=== PATIENT | female | born 1935 | race Caucasian/White ===

== ENCOUNTER 2020-02-28 15:08 | Emergency (ER) | payer OTHER ==
--- OUTSIDE RECORDS SUMMARY | 2020-02-28 15:12 | XMS REPORT | Continuity of Care Document ---
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, Neuro systemic arterial (disorder) Memory Active Problem 03/16/2019 [facility] impairment Neuro (finding) Medications Medication Details Route Status Patient Ordering Order Source Instructions Provider Date carvedilol 3.125 mg, Active 02/01/20 [facility] PO, BID, 0 19 Neuro Refill(s) Furosemide 20 mg, PO, Active 02/01/20 [facility] Daily, 0 19 Neuro Refill(s) olmesartan 40 mg, PO, Active 02/01/20 [facility] Daily, # 30 19 Neuro tab, 0 Refill(s) latanoprost 1 drp, Each Active 02/01/20 [facility] 0.05 MG/ML Affected 19 Neuro Ophthalmic Eye, Solution Bedtime, # [Xalatan] 1 btl, 1 Refill(s) Aspirin 325 mg, PO, Active 02/01/20 [facility] BID, 0 19 Neuro Refill(s) Allergies, Adverse Reactions, Alerts Substance Category Reaction Severity Reaction Status Date Comments S ource type Reported sulfa drugs Assertion Drug Active Mi eldon allergy Neuro hydrochloro Assertion Drug Active Mi eldon thiazide-tr allergy Neur o iamterene Immunizations No Data Provided for This Section Results No Data Provided for This Section Pathology Reports No Data Provided for This Section Diagnostic Reports No Data Provided for This Section Consultation Notes No Data Provided for This Section Discharge Summaries No Data Provided for This Section History and Physicals No Data Provided for This Section Vital Signs Vital Sign Value Date Comments Source Systolic (mm Hg) 169 03/13/2019 [facility]to ro Diastolic (mm Hg) 76 03/13/2019 [facility] u[facility] Heart Rate 74 03/13/2019 [facility] Respitory Rate 16 03/13/2019 [facility] Height 165.1 cm 03/13/2019 [facility] Weight 80 03/13/2019 [facility] BMI Calculated 29.35 03/13/2019 [facility] Systolic (mm Hg) 168 01/31/2019 [facility] Eriberto ro Diastolic (mm Hg) 82 01/31/2019 [facility] Ne uro Heart Rate 71 01/31/2019 [facility] Neuro Respitory Rate 16 01/31/2019 [facility] Neuro Height 165.1 cm 01/31/2019 [facility] Weight 79.545 01/31/2019 [facility] BMI Calculated 29.18 01/31/2019 [facility] Neuro Encounters Location Location Encounter Encounter Reason Attending ADM [place] Source Details Type Number For Provider Date Date Visit [facility] Outpatient [id number] Joe 01/31 02/01 [facility] Neurology [facility] Neuro [facility] Outpatient [id number] Joe 03/13 [facility] Eddie MNA Outpatient [id number] Joe 03/13 03/14 [facility] Neurology [facility] Neuro [facility] Procedures No Data Provided for This Section Assessment and Plan No Data Provided for This Section Plan of Care No Data Provided for This Section Social History Social History Date Source Social History TypeResponse 01/31/2019 [facility] Neur o Employment/School 1 Smoking Status Former smoker; Type: Cigarettes; Exposur e to Tobacco Smoke Unable to obtain; Cigarette Smoking Last 365 Days Unable to obtain; Reg Smoking Cessation Counseling No; Other Tobacco Frequency Stopped 30yrs ago; entered on: 03/13/19 1May release medical information to Daughter-Kiah Johnson Family History No Data Provided for This Section Advance Directives No Data Provided for This Section Functional Status No Data Provided for This Section
[2020-02-28 16:08] LABS: Absolute Lymphocytes (CBC) 1.4 K/uL (0.7-4.9); Basophils % 0.9 % (0-1.3); Hematocrit 37.8 % (36.0-45.0); Lymphocytes % 26.4 % (15.3-44.8); MPV 7.5 fL (7.6-11.3)
--- NOTE | 2020-02-28 16:20 | RAD REPORT ---
EXAM DESCRIPTION: CT - Abdomen Pelvis W Contrast - 02/28/2020 4:06 pm CLINICAL HISTORY: bloody bowel movement COMPARISON: No comparisons TECHNIQUE: Biphasic, helical CT imaging of the abdomen and pelvis was performed following 100 ml non -ionic IV contrast. No oral contrast administered. All CT scans are performed using dose optimization technique as appropriate and may include automated exposure control or mA/KV adjustment according to patient size. FINDINGS: A 7 x 3 mm pulmonary nodule is seen in the lower right lung field. No pneumothorax or pleu ral effusion. The liver, spleen, and pancreas show no suspicious findings. Gallbladder is absent. Biliary tree is p rominent but not outside of normal range for a post cholecystectomy patient. Duct stones can be occul t. Symmetric renal function is seen with no hydronephrosis or suspicious renal mass. No pyelonephritis o r acute parenchymal process. Benign renal cysts are present. No adrenal abnormalities. No urinary dia dder abnormality seen. Uterus is absent. Ovaries are absent or atrophic. Pelvic floor laxity is prese nt. No dilated bowel loops or bowel wall thickening. No gastric dilatation or wall thickening. No dilated large or small bowel loops. Patient has scattered velasquez diverticulosis. No diverticulitis, mass, wall thickening or other active colon process identifiable. No free air, free fluid or inflammatory strand ing. No mass or bulky lymphadenopathy. Fat only left inguinal hernia is present. No suspicious bony findings. IMPRESSION: Contrast enhanced CT abdomen and pelvis showing no acute or emergent finding. Nonacute findings detailed in the body of the report.
[2020-02-28 16:22] LABS: Protime INR 1.03
[2020-02-28 16:30] LABS: ALT/SGPT 29 U/L (12-78); AST/SGOT 23 U/L (15-37); Albumin 3.8 g/dL (3.4-5.0); Alkaline Phosphatase 83 U/L (45-117); BUN Blood Urea Nitrogen 36 mg/dL (7-18); Bicarbonate 30 mmol/L (21-32); Bilirubin Direct 0.1 mg/dL (0-0.2); Bilirubin Total 0.5 mg/dL (0.2-1.0); Glucose Level 102 mg/dL (74-106); Magnesium 2.4 mg/dL (1.8-2.4); NT PRO-BNP 77 pg/mL (<450); Potassium 3.7 mmol/L (3.5-5.1); Protein, Total 7.4 g/dL (6.4-8.2); Sodium Level 143 mmol/L (136-145); Troponin (Emerg Dept Use Only) < 0.02 ng/mL (0.0-0.045)
--- NOTE | 2020-02-28 16:44 | RAD REPORT ---
EXAM DESCRIPTION: RAD - Chest Single View - 02/28/2020 4:27 pm CLINICAL HISTORY: bloody bowel movement, abdominal pain COMPARISON: Two view chest October 2007 TECHNIQUE: AP portable chest image was obtained 02/28/2020 4:27 pm . FINDINGS: Low lung volumes noted. No peripheral mass or consolidation. Interstitial pattern is not s ignificantly different from comparison. Heart and vasculature are normal. No measurable pleural effus ion and no pneumothorax. No acute bony abnormality seen. No acute aortic findings suspected. IMPRESSION: No acute cardiopulmonary process.
--- NOTE | 2020-02-28 17:57 | ER ---
Nurse's Notes [facility] Name: Kiah Gardiner Age: 85 yrs Sex: Female : 1935 Arrival Date: 02/28/2020 Time: 15:10 Bed 20 Private MD: Diagnosis: Gastrointestinal hemorrhage, unspecified Presentation: 02/27 15:18 Chief complaint: Patient states: Bloody stool today at 1100 with blood clot. States she ll1 hasn't had anymore since. No pain or fever. Coronavirus screen: Client denies travel out of the [place] in the last 14 days. At this time, the client does not indicate any symptoms associated with coronavirus-19. Ebola Screen: Patient denies travel to an Ebola-affected area in the 21 days before illness onset. Initial Sepsis Screen: Does the patient meet any 2 criteria? No. Patient's initial sepsis screen is negative. Does the patient have a suspected source of infection? Yes: Other: bloody stool. Risk Assessment: Do you want to hurt yourself or someone else? Patient reports no desire to harm self or others. Onset of symptoms was February 28, 2020. 15:18 Method Of Arrival: Ambulatory ll1 15:18 Acuity: PEDRO 3 ll1 Historical: - Allergies: 15:17 Sulfa (Sulfonamide Antibiotics); ll1 15:17 hydrochlorothiazide; ll1 - PMHx: 15:18 Cataracts; ll1 - PSHx: 15:18 Cholecystectomy; Hysterectomy; knee replacment; Bladder suspension; ll1 - Immunization history:: Flu vaccine is up to date. - Social history:: Smoking status: Patient denies any tobacco usage or history of. Screenin:20 Abuse screen: Denies threats or abuse. Nutritional screening: No deficits noted. tw2 Tuberculosis screening: No symptoms or risk factors identified. Fall Risk Secondary diagnosis (15 points) impaired mobility. Assessment: 15:36 General: Appears in no apparent distress. slender, well groomed, Behavior is calm, tw2 cooperative, appropriate for age. Pain: Denies pain. Neuro: Level of Consciousness is awake, alert, obeys commands, Oriented to person, place, time. Cardiovascular: Heart tones S1 S2 Capillary refill < 3 seconds Patient's skin is warm and dry. Respiratory: Airway is patent Respiratory effort is even, unlabored, Respiratory pattern is regular, symmetrical, Breath sounds are clear bilaterally. GI: Abdomen is round non-distended, Bowel sounds present X 4 quads. Reports bloody stool, x1 today. : No signs and/or symptoms were reported regarding the genitourinary system. EENT: No signs and/or symptoms were reported regarding the EENT system. Derm: No signs and/or symptoms reported regarding the dermatologic system. Musculoskeletal: Range of motion: intact in all extremities. 16:11 Reassessment: pt in CT at this time. tw2 16:13 Reassessment: pt back from CT at this time. NAD. tw2 16:13 Reassessment: xray at bedside at this time. tw2 16:33 Reassessment: Patient appears in no apparent distress at this time. No changes from tw2 previously documented assessment. Patient and/or family updated on plan of care and expected duration. Pain level reassessed. Patient is alert, oriented x 3, equal unlabored respirations, skin warm/dry/pink. 17:29 Reassessment: Patient appears in no apparent distress at this time. No changes from tw2 previously documented assessment. Patient and/or family updated on plan of care and expected duration. Pain level reassessed. Patient is alert, oriented x 3, equal unlabored respirations, skin warm/dry/pink. 19:00 Reassessment: Patient appears in no apparent distress at this time. Patient and/or jb4 family updated on plan of care and expected duration. Pain level reassessed. Patient is alert, oriented x 3, equal unlabored respirations, skin warm/dry/pink. 20:00 Reassessment: Patient appears in no apparent distress at this time. Patient and/or jb4 family updated on plan of care and expected duration. Pain level reassessed. Patient is alert, oriented x 3, equal unlabored respirations, skin warm/dry/pink. PT being wheeled out by EMS. Vital Signs: 15:18 BP 157 / 70; Pulse 82; Resp 17; Temp 97.8; Pulse Ox 100% ; Weight 74.84 kg; Height 5 ll1 ft. 8 in. (172.72 cm); Pain 0/10; 16:31 BP 139 / 53 Supine; Pulse 71; Resp 18; Pulse Ox 100% on R/A; tw2 16:31 BP 143 / 67 Sitting; Pulse 71; Resp 18; tw2 16:31 BP 146 / 74 Standing; Pulse 82; Resp 17; Pulse Ox 99% on R/A; tw2 17:29 BP 147 / 58; Pulse 66; Resp 17; Pulse Ox 100% on R/A; tw2 19:00 BP 159 / 71; Pulse 64; Resp 16; Pulse Ox 100% on R/A; jb4 20:00 BP 157 / 68; Pulse 66; Resp 16; Pulse Ox 100% on R/A; jb4 15:18 Body Mass Index 25.09 (74.84 kg, 172.72 cm) ll1 ED Course: 15:10 Patient arrived in ED. ds1 15:18 Arm band placed on Patient placed in an exam room, on a stretcher. ll1 15:20 Triage completed. ll1 15:20 Placed in gown. Bed in low position. Adult w/ patient. youth nutritional monitor on. Pulse ox on. tw2 NIBP on. Warm blanket given. 15:23 Shreyas Holloway PA is PHCP. cp 15:23 Omer Huber MD is Attending Physician. cp 15:24 Aicha Ortiz, DANDY is Primary Nurse. tw2 15:36 Served as a ribbing machine operator during rectal exam. tw2 15:49 Inserted saline lock: 20 gauge in right antecubital area, using aseptic technique. jp3 Blood collected. 15:49 Initial lab(s) drawn, by ms, sent to lab. T\T\S collected, blood band applied to patient. jp3 Patient maintains SpO2 saturation greater than 95% on room air. 16:07 CT Abd/Pelvis - IV Contrast Only In Process Unspecified. EDMS 16:27 XRAY Chest (1 view) In Process Unspecified. EDMS 16:33 transferred initiated with Amadou Perez from the [facility] Transfer [facility]. eb 17:20 EKG done, by ED staff, reviewed by Shreyas KENYON. [facility] 17:[address] Rodriguez (GI) and Dr. Avendano (hospitalist) personal financial planner for [facility] with rafael KENYON for patient transfer consultation. 17:51 administrative approval given by Amadou Perez/ patient has been accepted to [facility] bed 934/ Dr. Daxa Avendano has accepted the patient in transfer/ report to be called through the transfer center at [phone]. 18:21 Awaiting: unsuccessful attempts to call report at this time. tw2 19:12 Primary Nurse role handed off by Aicha Ortiz RN eb 20:00 Patient transferred, IV remains in place. jb4 20:03 Lamont Denton, RN is Primary Nurse. jb4 Administered Medications: 17:58 Drug: NS 0.9% 500 ml Route: IV; Rate: bolus; Site: right antecubital; tw2 19:07 Follow up: Response: No adverse reaction; Rate change 125 ml/hr; IV Status: Completed tw2 infusion; IV Intake: 500ml 18:55 Drug: NS 0.9% 500 ml Route: IV; Rate: 100 ml/hr; Site: right antecubital; tw2 Intake: 19:07 IV: 500ml; Total: 500ml. tw2 Outcome: 17:56 ER care complete, transfer ordered by . cp 20:00 Transferred by ground EMS to [facility], Transfer form completed. jb4 X-rays sent w/ patient. 20:00 Condition: stable 20:00 Discharge instructions given to patient, family, Instructed on the need for transfer, Demonstrated understanding of instructions. 20:10 Patient left the ED. dm5 Signatures: Dispatcher [employer] PIERREMS Judy Mi, RN RN dm5 Pinky Beasley ds1 Shreyas Holloway PA PA Aicha Ortiz RN RN tw2 Lamont Denton RN RN jb4 Micki Garcia 3 Gwen Roberts Jacob 3 Josiah Xiong RN RN ll1
--- NOTE | 2020-02-28 17:57 | EDPHYS ---
Physician Documentation [facility] Name: Kiah Gardiner Age: 85 yrs Sex: Female : 1935 Arrival Date: 02/28/2020 Time: 15:10 Bed 20 Private MD: ED Physician Omer Huber HPI: 02/27 15:40 This 85 yrs old Female presents to ER via Ambulatory with complaints of cp Bloody Stools. 15:40 The patient presents to the emergency department with rectal bleeding, painless without cp stool. 15:40 Onset: The symptoms/episode began/occurred today. Abdominal pain: none is appreciated. cp Associated signs and symptoms: Pertinent negatives: chest pain, constipation, diarrhea, dizziness at rest, dizziness when standing, fever, shortness of breath, syncope. Severity of symptoms: in the emergency department the symptoms are unchanged despite home interventions. Patient reports taking daily aspirin. 1 episode of painless rectal bleeding observed today. Historical: - Allergies: 15:17 Sulfa (Sulfonamide Antibiotics); ll1 15:17 hydrochlorothiazide; ll1 - PMHx: 15:18 Cataracts; ll1 - PSHx: 15:18 Cholecystectomy; Hysterectomy; knee replacment; Bladder suspension; ll1 - Immunization history:: Flu vaccine is up to date. - Social history:: Smoking status: Patient denies any tobacco usage or history of. ROS: 15:41 Constitutional: Negative for body aches, chills, fever, poor PO intake. cp 15:41 Eyes: Negative for injury, pain, redness, and discharge. cp 15:41 ENT: Negative for ear pain, sore throat, difficulty swallowing, difficulty handling secretions. 15:41 Cardiovascular: Negative for chest pain, edema, palpitations. 15:41 Respiratory: Negative for cough, shortness of breath, wheezing. 15:41 Abdomen/GI: Positive for rectal bleeding, Negative for abdominal pain, nausea and vomiting, diarrhea, constipation, black/tarry stool. 15:41 Neuro: Negative for altered mental status, headache, weakness. 15:41 All other systems are negative. Exam: 15:42 Head/Face: Normocephalic, atraumatic. cp 15:42 Constitutional: The patient appears in no acute distress, alert, awake, comfortable, non-diaphoretic, non-toxic, well developed, well nourished. 15:42 Eyes: Periorbital structures: appear normal, Conjunctiva: normal, no exudate, no injection, Sclera: no appreciated abnormality, Lids and lashes: appear normal, bilaterally. 15:42 ENT: External ear(s): are unremarkable, Nose: is normal, Posterior pharynx: Airway: no evidence of obstruction, patent. 15:42 Chest/axilla: Inspection: normal, Palpation: is normal, no crepitus, no tenderness. 15:42 Cardiovascular: Rate: normal, Rhythm: regular, Edema: is not appreciated, JVD: is not appreciated. 15:42 Respiratory: the patient does not display signs of respiratory distress, Respirations: normal, no use of accessory muscles, no retractions, labored breathing, is not present, Breath sounds: are clear throughout, no decreased breath sounds, no stridor, no wheezing. 15:42 Abdomen/GI: Inspection: abdomen appears normal, Bowel sounds: active, all quadrants, Palpation: abdomen is soft and non-tender, in all quadrants, rebound tenderness, is not appreciated, voluntary guarding, is not appreciated, involuntary guarding, is not appreciated. 15:42 Back: pain, is absent, ROM is normal. 15:42 Neuro: Orientation: to person, place \T\ time. Mentation: is normal, Motor: moves all fours, strength is normal. 17:25 ECG was reviewed by the Attending Physician. cp Vital Signs: 15:18 BP 157 / 70; Pulse 82; Resp 17; Temp 97.8; Pulse Ox 100% ; Weight 74.84 kg; Height 5 ll1 ft. 8 in. (172.72 cm); Pain 0/10; 16:31 BP 139 / 53 Supine; Pulse 71; Resp 18; Pulse Ox 100% on R/A; tw2 16:31 BP 143 / 67 Sitting; Pulse 71; Resp 18; tw2 16:31 BP 146 / 74 Standing; Pulse 82; Resp 17; Pulse Ox 99% on R/A; tw2 17:29 BP 147 / 58; Pulse 66; Resp 17; Pulse Ox 100% on R/A; tw2 19:00 BP 159 / 71; Pulse 64; Resp 16; Pulse Ox 100% on R/A; jb4 20:00 BP 157 / 68; Pulse 66; Resp 16; Pulse Ox 100% on R/A; jb4 15:18 Body Mass Index 25.09 (74.84 kg, 172.72 cm) ll1 MDM: 15:37 Patient medically screened. 16:00 Differential diagnosis: diverticulitis, hemorrhoids, colitis, anemia. 17:00 Data reviewed: vital signs, nurses notes, lab test result(s), EKG, radiologic studies, CT scan, plain films. 17:00 Test interpretation: by ED physician or midlevel provider: ECG. 17:35 Physician consultation: was contacted at 17:30, regarding regarding transfer, to [facility]. patient's condition, Accepting physician will be DR Avendano, hospitalist, with consulting GI physician DR Rodriguez. 02/27 15:38 Order name: NT PRO-BNP; Complete Time: 16:47 02/27 15:38 Order name: Basic Metabolic Panel; Complete Time: 16:47 02/27 17:28 Interpretation: Normal except: CL 108; BUN 36; GFR 49. 02/27 15:38 Order name: CBC with Diff; Complete Time: 16:29 02/27 16:29 Interpretation: Normal except: MPV 7.5; EOSINOPHIL % 4.9. 02/27 15:38 Order name: LFT's; Complete Time: 16:47 02/27 15:38 Order name: Magnesium; Complete Time: 16:47 02/27 15:38 Order name: PT-INR; Complete Time: 16:47 02/27 15:38 Order name: Troponin (emerg Dept Use Only); Complete Time: 16:47 02/27 15:38 Order name: XRAY Chest (1 view); Complete Time: 16:47 02/27 15:38 Order name: EKG; Complete Time: 15:39 02/27 15:38 Order name: Cardiac monitoring; Complete Time: 16:01 02/27 15:39 Order name: Type And Screen; Complete Time: 17:27 02/27 15:39 Order name: CT Abd/Pelvis - IV Contrast Only; Complete Time: 16:29 02/27 15:38 Order name: EKG - Nurse/Tech; Complete Time: 17:26 02/27 15:38 Order name: IV Saline Lock; Complete Time: 16:01 02/27 15:38 Order name: Labs collected and sent; Complete Time: 16:01 cp 02/27 15:39 Order name: O2 Per Protocol; Complete Time: 16:01 cp 02/27 15:39 Order name: O2 Sat Monitoring; Complete Time: 16:01 cp 02/27 15:39 Order name: Orthostatics; Complete Time: 16:33 cp EC:25 Rate is 70 beats/min. Rhythm is regular. ND interval is normal. QRS interval is normal. cp QT interval is normal. T waves are Inverted in lead aVR. Interpreted by me. Reviewed by me. Administered Medications: 17:58 Drug: NS 0.9% 500 ml Route: IV; Rate: bolus; Site: right antecubital; tw2 19:07 Follow up: Response: No adverse reaction; Rate change 125 ml/hr; IV Status: Completed tw2 infusion; IV Intake: 500ml 18:55 Drug: NS 0.9% 500 ml Route: IV; Rate: 100 ml/hr; Site: right antecubital; tw2 Disposition: 02/28/20 17:56 Transfer ordered to [facility]. Diagnosis is Gastrointestinal hemorrhage, unspecified. - Reason for transfer: Higher level of care. - Accepting physician is DR Avendano. - Condition is Stable. - Problem is new. - Symptoms are unchanged. Addendum: 03/01/2020 07:32 Co-signature as Attending Physician, Omer Huber MD. r n 07:32 I agree with the assessment and plan of care. Attestation: The patient's history, exam r n findings, diagnostics, and a summary of any interventions or procedures was reviewed in detail with Shreyas KENYON. Signatures: Dispatcher [employer] Judy Turcios RN RN dm5 Omer Huber MD MD rn Page, Corey, PA PA cp Aicha Ortiz, RN RN tw2 Josiah Xiong RN RN ll1 Corrections: (The following items were deleted from the chart) 02/27 20:10 17:56 02/28/2020 17:56 Transfer ordered to [facility]. dm5 Diagnosis is Gastrointestinal hemorrhage, unspecified. Reason for transfer: Higher level of care. Accepting physician is DR Avendano. Condition is Stable. Problem is new. Symptoms are unchanged. cp
[2020-02-28] MEDS ORDERED: NA CHLORIDE 0.9% 1,000 ML ONE (18:04)
[2020-02-29 06:28] VITALS: TEMP 97.8
[2020-02-29 06:32] VITALS: BP 147/58; O2SAT 100
== END 2020-02-28 20:10 | disposition short-term general hospital (02) ==
LOC: ER 15:08
DX: K92.2 Gastrointestinal hemorrhage, unspecified (principal); Z88.2 Allergy status to sulfonamides; Z88.8 Allergy status to other drugs, medicaments and biological substances
CPT/HCPCS: 93005; 85025; 80048; 36415; 86900; 83735; 86850; 85610; 82565; 86901; 80076; 84484; 83880; 74177; 71045; 96360; 99285; Q9967; J7030